=== PATIENT | female | born 1965 | race African-American/Black ===

== ENCOUNTER 2022-07-05 10:38 | Emergency (ER) | payer MEDICAID, OTHER ==
[~2022-07-05] VITALS: Ht 167.6 cm; Wt 127.0 kg
[~2022-07-05 10:38] MED LIST: ALBUTEROL; AMLODIPINE; ATROVENT; Q-VAR
[2022-07-05] MEDS ORDERED: MORPHINE SULFATE 10 MG/ML CPJ IM ONE (12:00)
[2022-07-05] MEDS ORDERED: ACETAMINOPHEN 325MG TABLET PO ONE (12:00)
[2022-07-05] MEDS ORDERED: LIDOCAINE 5% PATCH TOP SCH (12:00)
[2022-07-05 12:43] VITALS: BP 187/106
== END 2022-07-05 13:25 | disposition left against medical advice (07) ==
LOC: ER 10:57
DX: M54.50 Low back pain, unspecified (principal); J45.909 Unspecified asthma, uncomplicated; E78.00 Pure hypercholesterolemia, unspecified; I10 Essential (primary) hypertension
CPT/HCPCS: 96372; 99283; J2270; Z7610

== ENCOUNTER 2024-02-18 07:05 | Emergency (ER) | payer MEDICAID, OTHER ==
[~2024-02-18] VITALS: Ht 168.9 cm; Wt 94.4 kg
[2024-02-18 07:10] VITALS: BP 135/89; RESP 18; O2SAT 97
[2024-02-18 07:12] VITALS: PULSE 102; O2SAT 99
[2024-02-18] MEDS ORDERED: NAPR-681 MT (08:16)
[2024-02-18] MEDS: ACETAMINOPHEN 325MG TABLET PO ONE (09:03)
[2024-02-18] MEDS: KETOROLAC 30MG/ML VIAL IM ONE (09:04)
== END 2024-02-18 09:10 | disposition home or self-care (01) ==
LOC: ER 07:05
DX: M25.532 Pain in left wrist (principal); M25.531 Pain in right wrist; I10 Essential (primary) hypertension; W01.0XXA Fall on same level from slipping, tripping and stumbling without subsequent striking against object, initial encounter; J45.909 Unspecified asthma, uncomplicated; Z90.710 Acquired absence of both cervix and uterus; Y93.89 Activity, other specified; Y92.89 Other specified places as the place of occurrence of the external cause; Y99.8 Other external cause status
CPT/HCPCS: 99284; 73060; 73090; 73110; 96372; J1885